=== PATIENT | male | born 1965 | race Caucasian/White ===

== ENCOUNTER → 2018-02-10 16:23 | Outpatient (CLI) | payer OTHER, SELFPAY ==
[2018-02-10 17:28] LABS: Basophils # 0.1 K/mm3 (0-0.2); Basophils % 0.7 % (0.1-2.0); Eosinophils # 0.3 K/mm3 (0.0-0.4); Eosinophils % 3.9 % (0.1-12.0); Hemoglobin 15.9 g/dL (14.1-18.0); Lymphocytes # 2.8 K/mm3 (0.7-4.5); Lymphocytes % 38.1 K/mm3 (10-50); Mean Corpuscular HGB Conc 33.2 g/dL (31.8-35.4); Mean Corpuscular Hemoglobin 31.4 pg (27.0-31.2); Mean Corpuscular Volume 94.6 fl (80-94); Mean Platelet Volume 7.3 fl (7.4-10.4); Monocytes # 0.5 K/mm3 (0.1-1.0); Monocytes % 6.7 % (1.7-9.3); Neutrophils # 3.7 K/mm3 (1.8-7.8); Neutrophils % 50.7 % (37.0-80.0); Platelet Count 304 K/mm3 (142-424); Red Blood Count 5.07 M/mm3 (4.60-6.20); Red Cell Distribution Width 13.3 % (11.5-17.5); White Blood Count 7.4 K/mm3 (4.8-10.8)
[2018-02-10 18:03] LABS: Alanine Aminotransferase 45 U/L (12-78); Albumin Level 4.6 gm/dL (3.4-5.0); Albumin/Globulin Ratio 1.6 (1.1-1.8); Alkaline Phosphatase 81 U/L (46-116); Anion Gap 12.4 mEq/L (5-15); Aspartate Amino Transferase 27 U/L (15-37); Bilirubin,Total 0.8 mg/dL (0.2-1.0); Blood Urea Nitrogen 11 mg/dL (7-18); Calcium 9.4 mg/dL (8.5-10.1); Carbon Dioxide 30 mmol/L (21.0-32.0); Chloride 104 mmol/L (98-107); Chol/HDL Ratio 3.4 (1-3.5); Cholesterol 217 mg/dL (140-200); Creatinine,Serum 0.78 mg/dL (0.70-1.30); Estimated Glomerular Filt Rate 104 ml/min (>60); GFR (African American) 126 ML/MIN (>60); Globulin 2.8 gm/dl (1.3-3.2); Glucose 107 mg/dL (74-106); HDL Cholesterol 63 mg/dL (27-67); LDL Cholesterol 138 mg/dL (0-130); Potassium 4.4 mmoL/L (3.5-5.1); Prostate Specific Ag Screen 2.3 ng/mL (0.0-4.0); Sodium 142 mmol/L (136-145); Thyroid Stimulating Hormone 1.16 uIU/ml (0.358-3.740); Total Protein,Serum 7.4 gm/dL (6.4-8.2); Triglycerides 79 mg/dL (30-200); VLDL Cholesterol 16 mg/dL (0-40)
[2018-02-12 17:28] LABS: Vitamin B12 592 pg/mL (232-1245)
== END ==
PROVIDERS: Visit Provider Nurse Practitioner Family
DX: Z00.00 Encounter for general adult medical examination without abnormal findings (principal); N40.1 Benign prostatic hyperplasia with lower urinary tract symptoms; H81.11 Benign paroxysmal vertigo, right ear; R33.9 Retention of urine, unspecified; R31.29 Other microscopic hematuria
CPT/HCPCS: 36415; 80053; 80061; 82607; 84443; 85025; G0103